=== PATIENT | male | born 1950 | race Caucasian/White ===

== ENCOUNTER 2017-02-18 07:37 | Emergency (ER) | payer OTHER, BC ==
[~2017-02-18] VITALS: Ht 172.7 cm; Wt 99.2 kg
[~2017-02-18 07:37] MED LIST: ADVAIR 250/501 DISK IH; ALLEGRA ALLERG180 MG PO; AQUASOL E PO; CALCIUM 1,2001 EACH PO; FLOVENT DISKUS1 DIS2 IH; Medrol Dosepak PO; PHENERGAN-CODE120 ML PO; PREDNISONE20 MG PO; PROAIR HFA8.5 GM IH; PROVENTIL,2.5 MG/0.5 IH; PROVENTIL,2.5 MG/3 M IH; Robitussin, Organidi PO; SINGULAIR10 MG PO; SPIRIVA1 INHALATI IH; Singulair PO; VITAMIN D1000 INTUN PO; VITAMIN D1000 UNIT; VITAMIN D33000 UNIT PO; Vitamin D PO; Zithromax PO
[2017-02-18 08:56] LABS: INFLUENZA A VIRAL ANTIGEN POSITIVE; INFLUENZA B VIRAL ANTIGEN NEGATIVE
[2017-02-18 09:55] LABS: HEMATOCRIT 44.6 % (38.0-50.0); MCH 29.1 PG (29.0-34.0); MCHC 32.3 G/DL (30.0-36.0); MCV 90.1 FL (86-99); MEAN PLAT.VOLUME 10.4 uM^3 (9.0-12.4); PLATELET COUNT 222 K/uL (156-360); RBC DIS.WIDTH-CV 13.2 % (11.8-14.6); RED BLOOD COUNT 4.95 M/uL (4.00-5.50); WHITE BLOOD COUNT 8.2 K/uL (4.1-10.2)
[2017-02-18 10:07] LABS: CHLORIDE 105 mEq/L (99-109); POTASSIUM 4.6 mEq/L (3.7-5.4); SODIUM 136 mEq/L (136-147)
[2017-02-18 10:09] LABS: GLUCOSE 140 mg/dL (70-99)
[2017-02-18 10:11] LABS: ANION GAP 10 MEQ/L (2-14); TOTAL BILIRUBIN 0.8 mg/dL (0.0-1.0)
[2017-02-18 10:13] LABS: ALKALINE PHOSPHATASE 89 IU/L (3-129); GFR ESTIMATE (CALCULATED) > 59 mL/min/
[2017-02-18 10:14] LABS: UREA NITROGEN (BUN) 13 mg/dL (9-23)
[2017-02-18 10:18] LABS: TROP-I INTERPRETATION NEGATIVE; TROPONIN-I < 0.01 ng/mL (0.0-0.30)
[2017-02-18 11:04] LABS: THEOPHYLLINE 8.5 MCG/ML (10-20)
[2017-02-18] MEDS ORDERED: VALIUM5 MG PO (11:43)
[2017-02-18] MEDS ORDERED: ROBITUSSIN NIG118 ML PO (11:43)
[2017-02-18 12:23] VITALS: BP 132/84
== END 2017-02-18 12:24 | disposition home or self-care (01) ==
LOC: EME 07:37
PROVIDERS: Nurse Practitioner Family
DX: J10.1 Influenza due to other identified influenza virus with other respiratory manifestations (principal); R79.89 Other specified abnormal findings of blood chemistry; R07.1 Chest pain on breathing; J45.909 Unspecified asthma, uncomplicated; J44.9 Chronic obstructive pulmonary disease, unspecified; K21.9 Gastro-esophageal reflux disease without esophagitis; E78.5 Hyperlipidemia, unspecified; Z87.891 Personal history of nicotine dependence
CPT/HCPCS: 71020; 80053; 80198; 84484; 85027; 87502; 93005; 94640; 99281; 99284

== ENCOUNTER → 2018-03-01 | Outpatient (CLI) | payer MEDICARE, BC ==
[~2018-03-01] MED LIST changes: +ROBITUSSIN NIG118 ML PO; +VALIUM5 MG PO
== END | disposition home or self-care (01) ==
LOC: CDC 15:41
DX: Z01.810 Encounter for preprocedural cardiovascular examination (principal)
CPT/HCPCS: 93000